=== PATIENT | female | born 1965 | race American Indian/Alaskan Native ===

== ENCOUNTER 2018-08-27 06:20 | Day surgery (SDC) | payer OTHER ==
[2018-08-27] MEDS ORDERED: NACL 0.9% 1000 ML 1,000 ML IV SCH (07:00)
[2018-08-27] MEDS ORDERED: DIPRIVAN 10 MG/ML IV ONE ×2 (08:55→08:56)
--- NOTE | 2018-08-27 09:33 | Short Stay Summary ---
Short Stay Documentation - Allergies and Medications Current Medications: Allergies latex Allergy (Intermediate, Verified 08/26/18 16:33) Unknown Home Medications Medication Instructions Recorded Confirmed Last Taken Type Aspirin BABY CHEW TAB 81 mg PO DAILY 08/26/18 08/27/18 08/26/18 History Atorvastatin 80 mg PO DAILY 08/26/18 08/26/18 08/26/18 History amLODIPine 5 mg PO DAILY 08/26/18 08/26/18 08/26/18 History Centrum Adults Tablet 1 tab PO DAILY 08/27/18 08/27/18 08/26/18 History Integra Plus Capsule 1 cap PO DAILY 08/27/18 08/27/18 08/26/18 History Pantoprazole 40 mg PO DAILY 08/27/18 08/27/18 08/26/18 History Active Medications Sodium Chloride (Nacl 0.9% 1000 Ml) 1,000 mls @ 50 mls/hr IV DIRECT LILI Stop: 08/27/18 23:59 Last Admin: 08/27/18 08:13 Dose: 50 mls/hr Documented by: - Brief post op/procedure progress note Date of procedure: 08/27/18 Pre-op diagnosis: Colon cancer screening Post-op diagnosis: same (1. internal hemorrhoids) Procedure: Colonoscopy Anesthesia: MAC Findings: As above Surgeon: MAURICIO SHAH Estimated blood loss: none Pathology: none Condition: stable - Disposition Condition at discharge: Stable Disposition: DC-01 TO HOME OR SELFCARE Short Stay Discharge Plan Activity: no restrictions Weight Bearing Status: Full Weight Bearing Diet: regular, low salt Follow up with: MIKAL FLORES MD [Primary Care Provider] - 7 Days
[2018-08-27 09:52] VITALS: BP 111/73
== END 2018-08-27 10:05 | disposition home or self-care (01) ==
LOC: GIO 06:20
PROVIDERS: ATTEND Internal Medicine Gastroenterology
DX: Z12.11 Encounter for screening for malignant neoplasm of colon (principal); K64.0 First degree hemorrhoids; E78.00 Pure hypercholesterolemia, unspecified; Z85.3 Personal history of malignant neoplasm of breast; Z91.040 Latex allergy status; Z79.899 Other long term (current) drug therapy; Z79.82 Long term (current) use of aspirin; Z98.890 Other specified postprocedural states; Z86.73 Personal history of transient ischemic attack (TIA), and cerebral infarction without residual deficits
CPT/HCPCS: 45378; J2704; J7030